=== PATIENT | female | born 2000 | race Caucasian/White ===

== ENCOUNTER 2019-08-17 10:04 | Day surgery (SDC) | payer OTHER ==
[~2019-08-17 10:04] MED LIST: Buffered Lidocaine 1% SYRIN* 1 ML/SYRINGE INTRADERM ONE; Lactated Ringers 1000 ML Bag* 1,000 ML IV SCH
[2019-08-17] MEDS ORDERED: Clindamycin 900 MG/D5W BAG(*) 900 MG/50 ML BAG IVPB ONE (10:17)
[2019-08-17] MEDS ORDERED: Buffered Lidocaine 1% SYRIN* 1 ML/SYRINGE INTRADERM ONE (10:18)
[2019-08-17] MEDS ORDERED: Midazolam* 1 MG/ML 2 ML VIAL (2 MG) ONE (11:05)
[2019-08-17] MEDS ORDERED: Propofol* 10 MG/ML 20 ML BTL ONE (11:05)
[2019-08-17] MEDS ORDERED: Lidocaine 2% PF * 5 ML VIAL ONE (11:06)
[2019-08-17] MEDS ORDERED: Dexamethasone IV* 4 MG/ML 1 ML (4 MG) ONE ×2 (11:09→12:17)
[2019-08-17] MEDS ORDERED: Metoclopramide IV* 5 MG/ML 2 ML VIAL ONE ×2 (11:09→12:17)
[2019-08-17] MEDS ORDERED: Ondansetron INJ* 2 MG/ML VIAL ONE ×2 (11:09→12:17)
[2019-08-17] MEDS ORDERED: Ketorolac INJ* 30 MG/ML 1 ML VIAL ONE ×2 (11:09→12:17)
[2019-08-17] MEDS ORDERED: Sugammadex * 500 MG/5 ML VIAL IV PUSH ONE (11:17)
[2019-08-17] MEDS ORDERED: Bupivacaine 0.25% SDV PF* 10 ML VIAL INJ ONE (11:57)
[2019-08-17] MEDS ORDERED: fentaNYL* 50 MCG/ML 2 ML VIAL (100 MCG VIAL) ONE ×2 (12:10→13:49)
[2019-08-17] MEDS ORDERED: oxyCODONE TAB* 5 MG TAB PO PRN (12:24)
[2019-08-17] MEDS ORDERED: DiMENhydriNATE IV* 50 MG/ML VIAL IV PUSH PRN (12:24)
[2019-08-17] MEDS ORDERED: Acetaminophen TAB* 325 MG PO PRN (12:24)
[2019-08-17] MEDS ORDERED: Naloxone* 0.4 MG/ML 1 ML VIAL IV PRN (12:24)
[2019-08-17] MEDS ORDERED: Acetaminophen TAB* 325 MG ONE (13:49)
--- NOTE | 2019-08-17 13:52 | OP ---
Operative Report - Blank - Operative Report Date of Operation: 08/17/19 Note: PATIENT: Radha Mei DATE OF : 2000 DATE OF SURGERY: 08/17/2019 SURGEON: Vinod Hernandez MD PEOPLESOFT DEVELOPER: RASHARD Guerin, whos assistance was necessary for positioning, retraction, help with instrumentation, and closure. ANESTHESIOLOGIST: Dr. Ojeda PREOPERATIVE DIAGNOSIS: Left foot painful accessory navicular POSTOPERATIVE DIAGNOSIS: Left foot painful accessory navicular OPERATION: Left foot Kidner procedure with excision of accessory navicular with advancement of the posterior tibial tendon ANESTHESIA: General LMA IMPLANTS: Arthrex Fibertak TOURNIQUET TIME: Less than one hour, with a well-padded thigh tourniquet at 250 mmHg SPECIMENS: Accessory navicular bone to pathology ESTIMATED BLOOD LOSS: Minimal COMPLICATIONS: none STATUS: Stable from the operating room to the recovery room and then home. INDICATIONS FOR PROCEDURE: Radha has a painful left accessory navicular bone and has tried extensive nonoperative treatment without benefit. Both operative and non operative treatment alternatives were reviewed. Further, the nature and risks of surgery were reviewed in careful detail, in the office as well as the pre-operative holding area. Our discussions regarding the risks of surgery included, but were not limited to, infection, wound problems, nerve injury, neuroma, RSD, persistent symptoms, blood clot, failure of the surgery, tendon rupture, persistent symptoms, and even the remote chance of catastrophic complication. DESCRIPTION OF PROCEDURE: The patient was seen in the preoperative holding unit and informed written consent was obtained. The appropriate extremity was marked. The patient was then brought to the operating room and carefully positioned on the operating room table. Anesthesia was induced. All bony prominences were padded with great care. A well-padded thigh tourniquet was placed. A chlorhexidine based pre- scrub was performed followed by a chloraprep prep and drape in standard sterile fashion. A surgical safety pause was then conducted in which we confirmed the appropriate patient, extremity, planned procedure, availability of equipment, indication and administration of prophylactic antibiotics, and DVT prophylaxis in the form of a compression boot on the non-surgical extremity. We began with Esmarch exsanguination of the limb and inflated the tourniquet. A medial longitudinal incision was made centered at the medial prominence of the navicular. Careful blunt dissection was taken down to the layer of the posterior tibial tendon and periosteum. This layer was defined. An incision was made at the superior edge of the posterior tibial tendon and this was reflected in a subperiosteal manner plantarly. The periosteum superiorly was also reflected in a subperiosteal manner so as to expose the entire medial navicular. The accessory navicular was apparent that fluoroscopy was also used to confirm. A small straight osteotome was then used to excise the accessory navicular as well as the prominent medial edge of the navicular. The edges were smoothed with a Rongeur and rasp. No prominence was felt directly and also the soft tissues were provisionally tacked closed, and no prominence was felt on the skin. Fluoroscopy was then used to confirm adequate resection. Copious irrigation was then performed. An Arthrex suturetak was then placed under fluoroscopic guidance into the navicular. This had excellent purchase and I was able to lift the foot off the bed by pulling on the sutures. These sutures were then placed through the posterior tibial tendon in a horizontal mattress fashion so as to advance the posterior tibial tendon to the new medial edge of the navicular bone. A #1 Vicryl suture was then used to perform a side- to-side repair of the periosteum and posterior tibial tendon. At this point, we irrigated copiously and then closed in layers meticulously utilizing 3-0 Monocryl and 3-0 Nylon for the skin. A sterile dressing was then applied followed by a splint with the ankle in neutral position. The patient was then awakened from anesthesia and transferred to the recovery room in stable condition. There were no complications. All needle and sponge counts were correct at the end of the case. ATTESTATION: I attest I was present and scrubbed and performed the critical portions of the procedure myself. POSTOPERATIVE PLAN: Follow up will be in 2 weeks for likely suture removal and transition to a [id number] short leg cast. We will plan on 6 weeks of [id number] in a cast.
[2019-08-17] MEDS: fentaNYL* 50 MCG/ML 2 ML VIAL (100 MCG VIAL) IV PRN ×2 (13:56→14:08)
[2019-08-17] MEDS ORDERED: oxyCODONE TAB* 5 MG TAB ONE (14:09)
[2019-08-17 16:35] VITALS: BP 124/84
== END 2019-08-17 16:39 | disposition home or self-care (01) ==
LOC: OR 10:04
PROVIDERS: ATTEND Orthopaedic Surgery
DX: Q66.89 Other specified congenital deformities of feet (principal); R00.2 Palpitations; K21.9 Gastro-esophageal reflux disease without esophagitis
CPT/HCPCS: 76000; 81025; A9270-GY; C1713; J1100; J1885; J2250; J2405; J2704; J2765; J3010; J3490

== ENCOUNTER 2019-11-14 05:36 | Day surgery (SDC) | payer OTHER ==
[~2019-11-14 05:36] MED LIST changes: -Lactated Ringers 1000 ML Bag* 1,000 ML IV SCH
[2019-11-14] MEDS ORDERED: Clindamycin 900 MG/D5W BAG(*) 900 MG/50 ML BAG IVPB ONE (05:55)
[2019-11-14] MEDS ORDERED: Buffered Lidocaine 1% SYRIN* 1 ML/SYRINGE INTRADERM ONE (05:55)
[2019-11-14] MEDS ORDERED: Dexamethasone IV* 4 MG/ML 1 ML (4 MG) ONE (05:55)
[2019-11-14] MEDS ORDERED: Famotidine IV* 10 MG/ML 2 ML (20 mg) ONE (05:56)
[2019-11-14] MEDS ORDERED: Lactated Ringers 1000 ML Bag* 1,000 ML IV SCH (06:00)
[2019-11-14] MEDS ORDERED: Famotidine IV* 10 MG/ML 2 ML (20 mg) IV ONE (06:00)
[2019-11-14] MEDS ORDERED: Dexamethasone IV* 4 MG/ML 1 ML (4 MG) IV SLOW PU ONE (06:00)
[2019-11-14] MEDS ORDERED: fentaNYL* 50 MCG/ML 2 ML VIAL (100 MCG VIAL) ONE ×2 (07:06→09:02)
[2019-11-14] MEDS ORDERED: Midazolam* 1 MG/ML 5 ML VIAL (5 MG) ONE (07:07)
[2019-11-14] MEDS ORDERED: Naloxone* 0.4 MG/ML 1 ML VIAL IV PRN (07:14)
[2019-11-14] MEDS ORDERED: DiMENhydriNATE IV* 50 MG/ML VIAL IV PUSH PRN (07:14)
[2019-11-14] MEDS ORDERED: fentaNYL* 50 MCG/ML 2 ML VIAL (100 MCG VIAL) IV PRN (07:14)
[2019-11-14] MEDS ORDERED: HYDROcodone/ACETAMIN 5-325 MG* 1 TAB PO PRN (07:14)
[2019-11-14] MEDS ORDERED: Bupivacaine 0.5%* 50 ML MDV VIAL ONE (07:23)
[2019-11-14] MEDS ORDERED: Propofol* 10 MG/ML 20 ML BTL ONE (07:35)
[2019-11-14] MEDS ORDERED: Lidocaine 2% PF * 5 ML VIAL ONE (07:35)
[2019-11-14] MEDS ORDERED: Ketorolac INJ* 30 MG/ML 1 ML VIAL ONE (07:45)
[2019-11-14] MEDS ORDERED: Phenylephrine 40 MCG/ML SYRINGE ONE (08:11)
[2019-11-14] MEDS ORDERED: Ondansetron INJ* 2 MG/ML VIAL ONE (08:15)
--- NOTE | 2019-11-14 08:47 | OP ---
Operative Report - Blank - Operative Report Date of Operation: 11/14/19 Note: PATIENT: Radha Mei DATE OF : 2000 DATE OF SURGERY: 11/14/2019 SURGEON: Vinod Hernandez MD INVESTIGATIVE RESEARCH SPECIALIST: RASHARD Guerin, whos assistance was necessary for positioning, retraction, help with instrumentation, and closure. ANESTHESIOLOGIST: Dr. Blanc PREOPERATIVE DIAGNOSIS: Right foot painful accessory navicular POSTOPERATIVE DIAGNOSIS: Right foot painful accessory navicular OPERATION: Right foot Kidner procedure with excision of accessory navicular with advancement of the posterior tibial tendon ANESTHESIA: General LMA IMPLANTS: Arthrex Fibertak TOURNIQUET TIME: Less than one hour, with a well-padded thigh tourniquet at 250 mmHg SPECIMENS: Accessory navicular bone to pathology ESTIMATED BLOOD LOSS: Minimal COMPLICATIONS: none STATUS: Stable from the operating room to the recovery room and then home. INDICATIONS FOR PROCEDURE: Radha has a painful right accessory navicular bone and has tried extensive nonoperative treatment without benefit. Both operative and non operative treatment alternatives were reviewed. Further, the nature and risks of surgery were reviewed in careful detail, in the office as well as the pre-operative holding area. Our discussions regarding the risks of surgery included, but were not limited to, infection, wound problems, nerve injury, neuroma, RSD, persistent symptoms, blood clot, failure of the surgery, tendon rupture, persistent symptoms, and even the remote chance of catastrophic complication. DESCRIPTION OF PROCEDURE: The patient was seen in the preoperative holding unit and informed written consent was obtained. The appropriate extremity was marked. The patient was then brought to the operating room and carefully positioned on the operating room table. Anesthesia was induced. All bony prominences were padded with great care. A well-padded thigh tourniquet was placed. A chlorhexidine based pre- scrub was performed followed by a chloraprep prep and drape in standard sterile fashion. A surgical safety pause was then conducted in which we confirmed the appropriate patient, extremity, planned procedure, availability of equipment, indication and administration of prophylactic antibiotics, and DVT prophylaxis in the form of a compression boot on the non-surgical extremity. We began with Esmarch exsanguination of the limb and inflated the tourniquet. A medial longitudinal incision was made centered at the medial prominence of the navicular. Careful blunt dissection was taken down to the layer of the posterior tibial tendon and periosteum. This layer was defined. An incision was made at the superior edge of the posterior tibial tendon and this was reflected in a subperiosteal manner plantarly. The periosteum superiorly was also reflected in a subperiosteal manner so as to expose the entire medial navicular. The accessory navicular was defined and excised in its entirety. I then used a small oscillating saw blade to plane down the medial aspect of the remaining navicular, so it was no longer prominent. The edges were smoothed with a Rongeur and then the exposed cancellous bed was smoothed with a rasp. No prominence was felt directly and also the soft tissues were provisionally tacked closed, and no prominence was felt on the skin. Fluoroscopy was then used to confirm adequate resection. Copious irrigation was then performed. An Arthrex fibertak was then placed under fluoroscopic guidance into the navicular. This had excellent purchase and I was able to lift the foot off the bed by pulling on the sutures. These sutures were then placed through the posterior tibial tendon in a horizontal mattress fashion so as to advance the posterior tibial tendon to the new medial edge of the navicular bone. A #1 Vicryl suture was then used to perform a [id number] repair of the periosteum and posterior tibial tendon. At this point, we irrigated copiously and then closed in layers meticulously utilizing 3-0 Monocryl and 3-0 Monocryl for the skin. A sterile dressing was then applied followed by a splint with the ankle in neutral position. The patient was then awakened from anesthesia and transferred to the recovery room in stable condition. There were no complications. All needle and sponge counts were correct at the end of the case. ATTESTATION: I attest I was present and scrubbed and performed the critical portions of the procedure myself. POSTOPERATIVE PLAN: Follow up will be in 2 weeks for a wound check and transition to a dop-hjpefy-[id number] short leg cast. We will plan on 6 weeks of [id number]-[id number] and immobilization. At 6 weeks postop she can progress to WBAT in a tall walking boot and start PT.
[2019-11-14] MEDS ORDERED: oxyCODONE/Acetamin 5/325 MG* TAB ONE (09:02)
[2019-11-14] MEDS: oxyCODONE/Acetamin 5/325 MG* TAB PO PRN ×2 (09:04→09:06)
[2019-11-14 09:47] VITALS: BP 119/75
== END 2019-11-14 10:08 | disposition home or self-care (01) ==
LOC: OR 05:36
PROVIDERS: ATTEND Orthopaedic Surgery
DX: Q66.89 Other specified congenital deformities of feet (principal); R00.2 Palpitations; K21.9 Gastro-esophageal reflux disease without esophagitis; Z88.0 Allergy status to penicillin
CPT/HCPCS: 76000; 81025; 88304; 88311; A9270-GY; C1713; J1100; J1885; J2250; J2405; J2704; J3010; J3490